=== PATIENT | female | born 1985 | race African-American/Black ===

== ENCOUNTER 2020-02-13 03:43 | Inpatient (IN) | payer MEDICAID ==
[~2020-02-13] VITALS: Ht 149.9 cm; Wt 49.0 kg
[2020-02-13] MEDS ORDERED: SODIUM CHLORIDE 0.9% 1,000 ML IV ONE ×2 (04:36→07:17)
[2020-02-13] MEDS ORDERED: MORPHINE SULFATE 4 MG/ML CPJ (NOT FOR IM USE) IV STA ×2 (04:36→07:17)
[2020-02-13] MEDS ORDERED: ONDANSETRON HCL 4MG/2ML INJ IV STA ×2 (04:36→07:17)
[2020-02-13] MEDS ORDERED: ACETAMINOPHEN 325MG TABLET PO STA (04:36)
[2020-02-13] MEDS ORDERED: SODIUM CHLORIDE 0.9% 1000ML BAG (SEPSIS BOLUS) IV ONE (04:45)
[2020-02-13] MEDS ORDERED: CEFTRIAXONE 1 G PREMIX 50 ML IV ONE (04:45)
[2020-02-13 04:53] LABS: BASOPHILS % 0.3 % (0.0-2.0); EOSINOPHILS % 0.3 % (0.0-5.0); HEMATOCRIT. 35.9 % (36.0-48.0); HEMOGLOBIN. 12.3 g/dL (12.0-16.0); LYMPHOCYTES % 8.9 % (20.0-50.0); MEAN CORPUSCULAR HEMOGLOBIN 33.8 pg (28.0-32.0); MEAN PLATELET VOLUME 8.1 fl (7.4-10.4); MONOCYTES % 3.1 % (2.0-8.0); NEUTROPHILS % 87.4 % (40.0-76.0); PLATELET 351 x1000/uL (130-400); RED BLOOD CELL COUNT 3.63 mill/uL (4.2-5.4); RED CELL DISTRIBUTION WIDTH 12.5 % (11.6-14.6)
[2020-02-13 05:00] LABS: CHLORIDE 106 mEq/L (98-107)
[2020-02-13 05:02] LABS: PROTHROMBIN TIME 10.9 sec (9.6-11.0)
[2020-02-13 05:05] LABS: ETHANOL BLOOD < 10 mg/dL
[2020-02-13 05:12] LABS: B-HCG QUANTITATIVE 13 mIU/mL (<3)
[2020-02-13 05:41] LABS: CLARITY URINE TURBID (CLEAR); COLOR URINE DARK YELLOW (YELLOW); KETONES URINE 3+ (NEGATIVE); LEUKOCYTE ESTERASE URINE 3+ (NEGATIVE); NITRITE URINE POSITIVE (NEGATIVE); OCCULT BLOOD URINE 3+ (NEGATIVE); PH URINE 6.5 (4.5-8.0); PROTEIN URINE 2+ (NEGATIVE); SPECIFIC GRAVITY URINE 1.031 (1.005-1.030)
[2020-02-13 05:54] LABS: *BARBITURATES SCREEN URINE NEGATIVE (NEGATIVE); *BENZODIAZEPINES SCREEN URINE NEGATIVE (NEGATIVE)
[2020-02-13 05:55] LABS: *COCAINE SCREEN URINE NEGATIVE (NEGATIVE)
[2020-02-13 05:56] LABS: METHADONE URINE SCREEN NEGATIVE (NEGATIVE)
[2020-02-13 05:57] LABS: PHENCYCLIDINE URINE SCREEN NEGATIVE (NEGATIVE)
[2020-02-13 06:02] LABS: *AMPHETAMINES SCREEN URINE PRESUMTIVE POSITIVE (NEGATIVE); CANNABINOID URINE SCREEN PRESUMTIVE POSITIVE (NEGATIVE); OPIATES URINE SCREEN PRESUMTIVE POSITIVE (NEGATIVE)
[2020-02-13] MEDS ORDERED: IOHEXOL-300 100 ML BOTTLE ONE (06:43)
[2020-02-13 11:30] VITALS: BP 106/54
[2020-02-13 12:00] VITALS: BP 106/54
[2020-02-13] MEDS ORDERED: HYDROCODONE/ACETAMINOPHEN 5/325MG TABLET PO PRN ×2 (12:15→16:30)
[2020-02-13 16:00] VITALS: BP 108/45
[2020-02-13] MEDS ORDERED: DOCUSATE SODIUM 100MG CAPSULE PO PRN (16:30)
[2020-02-13] MEDS ORDERED: GUAIFENESIN 200MG/10ML SUGAR FREE UDC PO PRN (16:30)
[2020-02-13] MEDS ORDERED: CLONIDINE 0.1MG TABLET PO PRN (16:30)
[2020-02-13] MEDS ORDERED: ONDANSETRON HCL 4MG/2ML INJ IV PRN (16:30)
[2020-02-13] MEDS ORDERED: LORAZEPAM 0.5MG TABLET PO PRN (16:30)
[2020-02-13] MEDS ORDERED: ACETAMINOPHEN 325MG TABLET PO PRN ×2 (16:30)
[2020-02-13] MEDS ORDERED: IPRATROPIUM/ALBUTEROL 0.5-3(2.5)MG/3ML NEB HHN PRN (16:30)
[2020-02-13] MEDS: LACTATED RINGERS 1,000 ML IV SCH (17:13)
[2020-02-13] MEDS: METRONIDAZOLE 500 MG PREMIX 100 ML IV SCH (17:14)
[2020-02-13] MEDS: MORPHINE SULFATE 2 MG/ML CPJ (NOT FOR IM USE) IV PRN (17:22)
[2020-02-13] MEDS: DOXYCYCLINE 100 MG in DEXT 5% WATER 100 ML IV SCH (19:06)
[2020-02-13 20:00] VITALS: BP 99/53
[2020-02-14] VITALS: BP 95/49
[2020-02-14] MEDS: METRONIDAZOLE 500 MG PREMIX 100 ML IV SCH ×3 (02:56→17:23)
[2020-02-14] MEDS: LACTATED RINGERS 1,000 ML IV SCH ×3 (02:56→23:01)
[2020-02-14 04:00] VITALS: BP 105/42
[2020-02-14] MEDS: DOXYCYCLINE 100 MG in DEXT 5% WATER 100 ML IV SCH ×2 (05:35→17:23)
[2020-02-14 06:53] LABS: BASOPHILS % 0.2 % (0.0-2.0); EOSINOPHILS % 1.4 % (0.0-5.0); HEMOGLOBIN. 9.8 g/dL (12.0-16.0); MEAN CORPUSCULAR HEMOGLOBIN 34.3 pg (28.0-32.0); MEAN CORPUSCULAR VOLUME 101.5 fL (81.0-99.0); MEAN PLATELET VOLUME 8.8 fl (7.4-10.4); MONOCYTES % 3.3 % (2.0-8.0); NEUTROPHILS % 77.1 % (40.0-76.0); PLATELET 236 x1000/uL (130-400); RED BLOOD CELL COUNT 2.86 mill/uL (4.2-5.4); RED CELL DISTRIBUTION WIDTH 12.6 % (11.6-14.6)
[2020-02-14 07:32] LABS: CHLORIDE 110 mEq/L (98-107)
[2020-02-14 07:59] VITALS: BP 107/61
[2020-02-14] MEDS: CEFTRIAXONE 2 G in DEXTROSE 5% WATER 50 ML IV SCH (08:32)
[2020-02-14] MEDS ORDERED: FENTANYL CITRATE/PF 50MCG/ML 2ML VIAL ONE (10:41)
[2020-02-14] MEDS ORDERED: MIDAZOLAM HCL 2 MG/2 ML VIAL ONE (10:41)
[2020-02-14] MEDS ORDERED: PROPOFOL 200MG/20ML VIAL IV ONE (10:41)
[2020-02-14] MEDS ORDERED: ROCURONIUM BROMIDE 10MG/ML VIAL 5ML IV ONE (10:42)
[2020-02-14] MEDS ORDERED: LIDOCAINE HCL/PF 1% 10 MG/ML 5ML VIAL ONE (10:59)
[2020-02-14] MEDS ORDERED: EPHEDRINE SULFATE 50MG/ML VIAL ONE (10:59)
[2020-02-14] MEDS ORDERED: DEXAMETHASONE 4MG/ML 1ML VIAL ONE (11:09)
[2020-02-14] MEDS ORDERED: ONDANSETRON HCL 4MG/2ML INJ ONE (11:09)
[2020-02-14] MEDS ORDERED: ACETAMINOPHEN 650MG SUPP PR PRN (11:30)
[2020-02-14] MEDS ORDERED: IBUPROFEN 800MG TABLET PO PRN (11:30)
[2020-02-14] MEDS ORDERED: HYDROMORPHONE HCL/PF 2MG/ML CPJ IV PRN (12:00)
[2020-02-14 12:05] LABS: BG BASE EXCESS -0.2 mmol/L (-2.0-2.0); BG CARBOXYHEMOGLOBIN 0.2 % (0.5-1.5); BG DEOXYHEMOGLOBIN 5.1 % (0.0-5.0); BG HCO3 ACT 24.4 mmol/L (22.0-26.0); BG METHEMOGLOBIN 0.1 % (0.0-1.5); BG OXYGEN SATURATION 94.9 % (92.0-98.5); BG OXYHEMOGLOBIN 94.6 % (94.0-97.0); BG PCO2 39.9 mmHg (35.0-45.0); BG PH 7.405 (7.350-7.450); BG SAMPLE SITE RIGHT RADIAL; BG TOTAL HEMOGLOBIN 10.7 g/dL (12.0-18.0); BG VENT MODE MASK - SIMPLE
[2020-02-14 12:38] LABS: BG FRACTION INSPIRED OXYGEN 40
[2020-02-14 16:00] VITALS: BP 104/63
[2020-02-14] MEDS: MORPHINE SULFATE 2 MG/ML CPJ (NOT FOR IM USE) IV PRN (19:58)
[2020-02-14 20:00] VITALS: BP 122/62
[2020-02-15] VITALS: BP 115/65
[2020-02-15] MEDS: METRONIDAZOLE 500 MG PREMIX 100 ML IV SCH ×2 (02:06→10:15)
[2020-02-15 04:00] VITALS: BP 102/54
[2020-02-15] MEDS: DOXYCYCLINE 100 MG in DEXT 5% WATER 100 ML IV SCH (06:13)
[2020-02-15 07:07] LABS: HIV SCREEN 4G Non Reactive (Non Reactive)
[2020-02-15 08:00] VITALS: BP 112/51
[2020-02-15 08:28] LABS: CHLORIDE 110 mEq/L (98-107)
[2020-02-15 08:35] LABS: BASOPHILS % 0.2 % (0.0-2.0); HEMATOCRIT. 27.1 % (36.0-48.0); HEMOGLOBIN. 9.1 g/dL (12.0-16.0); LYMPHOCYTES % 9.9 % (20.0-50.0); MEAN CORPUSCULAR HEMOGLOBIN 33.9 pg (28.0-32.0); MEAN PLATELET VOLUME 9.1 fl (7.4-10.4); MONOCYTES % 4.1 % (2.0-8.0); NEUTROPHILS % 85.8 % (40.0-76.0); PLATELET 232 x1000/uL (130-400); RED BLOOD CELL COUNT 2.68 mill/uL (4.2-5.4); RED CELL DISTRIBUTION WIDTH 12.3 % (11.6-14.6)
[2020-02-15] MEDS: CEFTRIAXONE 2 G in DEXTROSE 5% WATER 50 ML IV SCH (09:51)
[2020-02-15] MEDS: LACTATED RINGERS 1,000 ML IV SCH (09:53)
[2020-02-15] MEDS ORDERED: DOXY100C2 MT (11:32)
[2020-02-15] MEDS ORDERED: METR-167 MT (11:32)
[2020-02-15 12:00] VITALS: BP 118/64
[2020-02-15 12:48] VITALS: BP 118/64
== END 2020-02-15 13:20 | disposition home or self-care (01) | DRG 544 ==
LOC: ER 03:43 → 8WST 08:03 → EDBEDREQTM 08:07 → EDBEDREQ 08:07 → ENRESERV 10:04
PROVIDERS: ADMIT Internal Medicine; ATTEND Internal Medicine
PROC: 0UDB7ZZ Extraction of Endometrium, Via Natural or Artificial Opening (ICD-10-PCS; principal; 2020-02-14)
DX: O03.37 Sepsis following incomplete spontaneous abortion (principal); A41.9 Sepsis, unspecified organism; O03.33 Metabolic disorder following incomplete spontaneous abortion; E87.6 Hypokalemia
CPT/HCPCS: 36415; 36600; 71045; 74177; 76830; 76856; 80048; 80053; 80305; 80320; 81003; 82375; 82805; 83605; 84145; 84702; 85025; 87389; 88305; 99285; J0696; J1100; J2250; J2270; J2405; J2704; J3010; J3490; J7030; J7060; J7120; Q9967; G0480